=== PATIENT | female | born 1950 | race Caucasian/White ===

== ENCOUNTER → 2019-01-01 11:53 | Outpatient (CLI) | payer MEDICARE, OTHER, SELFPAY ==
[2019-01-01 12:46] LABS: Hematocrit 41.3 % (36-46); Hemoglobin 14.1 g/dL (12.0-16.0); Mean Corpuscular HGB Conc 34.2 % (30-36); Mean Corpuscular Volume 87.8 fL (80-100); Platelet Count 202 X10^3/uL (150-400); Red Cell Distribution Width 14.1 % (11.6-14.8); White Blood Cell Count 5.3 X10^3/uL (4.5-11.0)
[2019-01-01 13:12] LABS: Alanine Aminotransferase 24 IU/L (9-52); Albumin 4.4 g/dL (3.5-5.0); Albumin Globulin Ratio 1.2 (1.0-2.8); Alkaline Phosphatase 76 U/L (38-126); Aspartate Aminotransferase 31 IU/L (14-36); BUN Creatinine Ratio 13.8 (6-22); Bilirubin Total 0.7 mg/dL (0.2-1.3); Blood Urea Nitrogen 11 mg/dL (7-17); Calcium 9.4 mg/dL (8.4-10.2); Carbon Dioxide 29 mmol/L (22-32); Chloride 104 mmol/L (98-107); Cholesterol 237 mg/dL (140-199); Estimated Glomerular Filt Rate > 60.0 mL/min (>60); Globulin 3.7 g/dL (1.7-4.1); Glucose 98 mg/dL (80-110); HDL Cholesterol 61 mg/dL (40-60); HEMOLYSIS < 15 (0-50); LDL Cholesterol Calculated 154 mg/dL (<100); Potassium 4.5 mmol/L (3.4-5.1); Sodium 142 mmol/L (137-145); Total Protein 8.1 g/dL (6.3-8.2); Triglycerides 112 mg/dL (35-150)
[2019-01-01 13:41] LABS: Neutrophils Absolute Manual 3869 /uL (3000-5900); RBC Morphology Normal Morphology; Total Cells Counted 100
[2019-01-01 13:42] LABS: TSH w/ Reflex to FT4 1.43 uIU/mL (0.47-4.68)
[2019-01-01 15:54] LABS: Vitamin D 25 Hydroxy (D3) 18.2 ng/mL (30.0-100.0)
[2019-01-01 16:43] LABS: Creatinine Urine Random 247.7 mg/dL
[2019-01-01 16:48] LABS: Microalbumi Creatinin Ratio Ur 5.2 ug/mg CR (<30); Microalbumin Urine Random 1.3 mg/dL (0-1.6)
== END ==
PROVIDERS: PCP Nurse Practitioner; Visit Provider Nurse Practitioner
DX: E78.5 Hyperlipidemia, unspecified (principal); I10 Essential (primary) hypertension; E55.9 Vitamin D deficiency, unspecified
CPT/HCPCS: 36415; 80053; 80061; 82043; 82306; 82570; 84443; 85025

== ENCOUNTER → 2019-03-25 10:24 | Outpatient (CLI) | payer MEDICARE, OTHER, SELFPAY ==
--- NOTE | 2019-03-26 16:06 | PM.PFT.1 ---
Pulmonary Function Test Referral & Results Date Patient Seen: 03/25/19 Requesting provider: Sam Jung Indication: Asthma Results: The spirometry demonstrates an FVC of 3.21 L which is 93% of predicted. The FEV1 was measured at 2.34 L which is 88% of predicted. The FEV1/FVC ratio was 73 which is 95% of predicted. Following the administration of bronchodilator there was a 20% improvement in FEF 25-75%. Lung volumes show an SVC of 3.03 L which is 94% of predicted. The diffusing capacity was measured at 26.98 which is 95% of predicted. The maximum voluntary ventilation was reduced Interpretation: This study demonstrates mild obstructive lung disease both based on FEV1 and shape a flow volume loop. There is minimal evidence of benefit following bronchodilator primarily small airway flow based on improvement in FEF 25-75% Normal lung volumes and diffusing capacity are present
== END ==
PROVIDERS: PCP Student in an Organized Health Care Education/Training Program; Visit Provider Student in an Organized Health Care Education/Training Program
DX: J45.909 Unspecified asthma, uncomplicated (principal); R06.02 Shortness of breath
CPT/HCPCS: 94060; 94726; 94729

== ENCOUNTER → 2019-04-22 07:34 | Outpatient (CLI) | payer MEDICARE, OTHER, SELFPAY ==
--- NOTE | 2019-04-22 09:00 | DI.ECHO.S_ITS ---
Echocardiogram Report + + :Name: SUZIE MIDDLETON Study Date: 04/22/2019 Height: 67 in : :[facility] Weight: 250 lb : : Gender: Female BSA: 2.2 m2 : :: 1950 Age: 68 yrs BP: 174/88 mmHg: :Reason For Study: Hypertension : : Performed By: [facility] Staff : + + Interpretation Summary Normal sinus rhythm. Normal LV size; borderline concentric LVH; normal wall motion and LV systolic function. EF is 60-65%. No significant valvular abnormalities. Normal chamber sizes. No prior study available for comparison. Procedure: A two-dimensional transthoracic echocardiogram with color flow and Doppler was performed. The study quality was technically adequate. There is no prior echocardiogram noted for this patient. The patient was in normal sinus rhythm during the exam. Left Ventricle: The left ventricle is normal in size. There is borderline concentric left ventricular hypertrophy. Left ventricular systolic function is normal. The ejection fraction is estimated to be 60-65%. Left ventricular wall motion is normal. Right Ventricle: The right ventricle is normal in size and function. Atria: The left atrial size is normal. The right atrium is mildly dilated. The interatrial septum is intact with no evidence for an atrial septal defect. Mitral Valve: The mitral valve is normal in structure and function. There is no mitral regurgitation noted. Aortic Valve: The aortic valve is trileaflet. The aortic valve opens well. No aortic regurgitation is present. Tricuspid Valve: The tricuspid valve is normal in structure and function. There is trace tricuspid regurgitation. Pulmonary artery pressures cannot be estimated because of the lack of a measurable TR jet velocity. Pulmonic Valve: The pulmonic valve is not well visualized. There is trace pulmonic regurgitation. Great Vessels: The aortic root is normal size. The dimensions of the ascending aorta are normal. The pulmonary artery is normal size. The inferior vena cava was not visualized. Pericardium/ Pleura There is no pericardial effusion. There is no pleural effusion. MMode/2D Measurements & Calculations LVIDd: 4.4 cm LVOT diam: 2.0 cm LVIDs: 2.4 cm Ao root diam: 3.0 cm FS: 45.6 % Aortic Jxn: 2.9 cm EPSS: 0.32 cm IVSd: 1.1 cm LVPWd: 1.1 cm LV munoz. diameter/BSA (cm/m^2): 2.0 LV sys. diameter/BSA (cm/m^2): 1.1 LA A2 area: 18.0 cm2 RA long axis: 4.5 cm LA A4 area: 23.6 cm2 RA area: 19.9 cm2 LA length (vol): 5.5 cm RA vol: 74.4 ml LA vol: 65.5 ml RA : 33.5 ml/m2 LA vol index: 29.4 ml/m2 TAPSE: 2.5 cm Doppler Measurements & Calculations Ao V2 max: 131.2 cm/sec LVOT Max Jad: 139.3 cm/sec Ao V2 mean: 100.6 cm/sec LV V1 max P.8 mmHg Ao max P.9 mmHg LV V1 VTI: 35.0 cm Ao mean P.4 mmHg CLARISA(I,D): 3.3 cm2 Ao V2 VTI: 31.8 cm CLARISA(V,D): 3.2 cm2 sev ratio: 1.1 CLARISA indexed to BSA (cm^2/m^2): 1.5 MV E max jad: 101.5 cm/sec PA V2 max: 98.4 cm/sec MV A max jad: 128.5 cm/sec PA V2 mean: 74.5 cm/sec MV E/A: 0.79 PA mean P.5 mmHg Med Peak E' Jad: 8.3 cm/sec PA Accel Time: 0.13 sec E/E' med: 12.3 Lat Peak E' Jad: 7.9 cm/sec E/E' lat: 12.9 E/e' average: 12.6 MV dec time: 0.27 sec SV(LVOT): 105.2 ml _ Electronically signed by: Annita Ballesteros M.D. on Reading Physician:04/23/2019 12:21 AM
== END ==
PROVIDERS: PCP Student in an Organized Health Care Education/Training Program; Visit Provider Student in an Organized Health Care Education/Training Program
DX: I10 Essential (primary) hypertension (principal); R05 Cough
CPT/HCPCS: 93306

== ENCOUNTER → 2019-08-11 09:15 | Outpatient (CLI) | payer MEDICARE, OTHER, SELFPAY ==
[2019-08-11 10:58] LABS: Vitamin D 25 Hydroxy (D3) 21.4 ng/mL (30.0-100.0)
== END ==
PROVIDERS: PCP Student in an Organized Health Care Education/Training Program; Referring Provider Nurse Practitioner; Visit Provider Nurse Practitioner
DX: E55.9 Vitamin D deficiency, unspecified (principal); E78.5 Hyperlipidemia, unspecified
CPT/HCPCS: 36415; 82306

== ENCOUNTER 2019-08-26 14:30 | Outpatient (RCR) | payer MEDICARE, OTHER, SELFPAY ==
--- NOTE | 2019-08-20 16:00 | PT.OPPOC ---
Physical, Occupational & Speech Therapy At [facility] Current Diagnoses Pain in left knee (08/20/19) Lumbago with sciatica, right side (08/20/19) Lumbago with sciatica, left side (08/20/19) Visit Care Team Role Provider Type Sam Jung MD Attending Provider Physician Primary Care Provider Referring Provider Specialty: Internal Medicine Address: [address] [place] [address], [facility] [address], [address] Email: [email or web address] Plan Of Care PT-OP-T Assessment and Plan Start: 08/20/19 07:28 Freq: Status: Active Protocol: Document 08/20/19 10:33 EG (Rec: 08/20/19 17:10 EG [email or web address]) Physical Therapy Assessment Rehab Potential Rehabilitation Potential Good Evaluation Complexity Number of Personal Factors/Comorbidities 3 or More Number of Body Systems Impaired 4 or More Clinical Presentation at Evaluation Stable Impairments Impairments Activity Tolerance,Balance, Functional Activities, Functional Mobility,Gait,Pain, Posture,ROM,Soft Tissue Mobility,Strength Goals Strength Impairment Strength Short Term Goal (STG) Patient will increase hip extension and abduction strength to 4+/5 bilaterally with no increase in symptoms in 6 weeks. STG Duration 6 weeks Transformer Mechanic Goal (LTG) Patient will increase ability to walk longer distances (>1 mile) with no increase in L hip and knee pain due to increased strength in bilateral hips. LTG Duration 8 weeks ROM Impairment ROM Short Term Goal (STG) Patient will have a 50% increase in ROM and be able to perform 10x spinal flexion with no increase in radiating pain in 4 weeks. STG Duration 4 weeks Transformer Mechanic Goal (LTG) Patient will be able to perform full range spinal flexion and bean picker objects from the floor with no increase in pain in 8 weeks. LTG Duration 8 weeks Activity Tolerance Impairment Activity Tolerance Short Term Goal (STG) Patient will be able to sit for >30 minutes with out pillow with no increase in hip and thigh pain in 3 weeks. STG Duration 3 weeks Half-Way Goal (LTG) Patient will be able to sit while driving with no need to weight shift and without a pillow under hip with no increase in pain in 6 weeks. LTG Duration 6 weeks Assessment Summary Assessment Patient is an otherwise healthy 69 year old female who reports to Physical Therapy due to low back pain with radiating pain down the L hip and thigh that stops superior to knee. The patient does present with back pain she does not believe to be related to her thigh but after testing, it seems as if repeated flexion increased radiating pain in to buttocks. There was no pain with PA mobilization of lumber spine and active extension does not eliminate radiating symptoms. Patient does have weak stabilizing muscles in the hips and will benefit from strengthening to help with stabilization when walking and performing dynamic movements at home. Patient does have tight gluteal and piriformis musculature with consideration that this may be contributing to the intermittent pain. Patient will benefit from skilled therapy to address spinal ROM, hip musculature strengthening as well as soft tissue lengthening of the posterior hip muscles. She will also benefit from balance , core, and stabilization exercises to help with safety and stability in ADL's. Physical Therapy Plan Frequency and Duration Frequency of Treatment 2x/Week Duration of Treatment 8 weeks Plan of Care Start Date 08/20/19 Plan of Care End Date 10/15/19 Therapeutic Interventions Therapeutic Interventions Balance Training,Coordination Training,Gait Training,Home Exercise Program,Joint Mobilizations,Manual Therapy, Neuromuscular Re-education, Patient/Caregiver Education, Self-Care/Home Management,Soft Tissue Mobilization,Taping, Therapeutic Activities, Therapeutic Exercises Modalities Cold Pack/Ice Massage,Electric Stimulation,Hot Packs Next Visit Focus/Plan Next Note Type Treatment Note Next Visit Plan Initiate therapeutic exercises focused on stretches she can do at home that address lower back as well as posterior lateral hip. Give clams, TA PPT, bridges, hamstring stretch, piriformis stretch, and possibly press-ups. Begin soft tissue mobilization Plan of Care Dates Plan of Care Start Date 08/20/19 Plan of Care End Date 10/15/19 Evelyn Constantino DPT supervised and agreed with the plan of care as performed by Katy Butler, BENOIT. Electronically Signed by: Jaycee Light, PT 08/24/19 1011 Please Sign and Return: I have reviewed this Plan of Care and certify that the skilled therapy services above are required to meet the patient?s needs. Physician Signature Date Printed Name and Credentials Clinical Instructor Signature Printed Name and Credentials
--- NOTE | 2019-08-20 16:00 | PT.OPPOC ---
Physical, Occupational & Speech Therapy At [facility] Current Diagnoses Pain in left knee (08/20/19) Lumbago with sciatica, right side (08/20/19) Lumbago with sciatica, left side (08/20/19) Visit Care Team Role Provider Type Sam Jung MD Attending Provider Physician Primary Care Provider Referring Provider Specialty: Internal Medicine Address: [address] [place] [address], [facility] [address], [place], [address] Email: [email or web address] Plan Of Care PT-OP-T Assessment and Plan Start: 08/20/19 07:28 Freq: Status: Active Protocol: Document 08/20/19 10:33 EG (Rec: 08/20/19 17:10 EG [email or web address]) Physical Therapy Assessment Rehab Potential Rehabilitation Potential Good Evaluation Complexity Number of Personal Factors/Comorbidities 3 or More Number of Body Systems Impaired 4 or More Clinical Presentation at Evaluation Stable Impairments Impairments Activity Tolerance,Balance, Functional Activities, Functional Mobility,Gait,Pain, Posture,ROM,Soft Tissue Mobility,Strength Goals Strength Impairment Strength Short Term Goal (STG) Patient will increase hip extension and abduction strength to 4+/5 bilaterally with no increase in symptoms in 6 weeks. STG Duration 6 weeks Br[employer] Tube Bender Goal (LTG) Patient will increase ability to walk longer distances (>1 mile) with no increase in L hip and knee pain due to increased strength in bilateral hips. LTG Duration 8 weeks ROM Impairment ROM Short Term Goal (STG) Patient will have a 50% increase in ROM and be able to perform 10x spinal flexion with no increase in radiating pain in 4 weeks. STG Duration 4 weeks [employer] Tube Bender Goal (LTG) Patient will be able to perform full range spinal flexion and pickling machine operator objects from the floor with no increase in pain in 8 weeks. LTG Duration 8 weeks Activity Tolerance Impairment Activity Tolerance Short Term Goal (STG) Patient will be able to sit for >30 minutes with out pillow with no increase in hip and thigh pain in 3 weeks. STG Duration 3 weeks Prison Goal (LTG) Patient will be able to sit while driving with no need to weight shift and without a pillow under hip with no increase in pain in 6 weeks. LTG Duration 6 weeks Assessment Summary Assessment Patient is an otherwise healthy 69 year old female who reports to Physical Therapy due to low back pain with radiating pain down the L hip and thigh that stops superior to knee. The patient does present with back pain she does not believe to be related to her thigh but after testing, it seems as if repeated flexion increased radiating pain in to buttocks. There was no pain with PA mobilization of lumber spine and active extension does not eliminate radiating symptoms. Patient does have weak stabilizing muscles in the hips and will benefit from strengthening to help with stabilization when walking and performing dynamic movements at home. Patient does have tight gluteal and piriformis musculature with consideration that this may be contributing to the intermittent pain. Patient will benefit from skilled therapy to address spinal ROM, hip musculature strengthening as well as soft tissue lengthening of the posterior hip muscles. She will also benefit from balance , core, and stabilization exercises to help with safety and stability in ADL's. Physical Therapy Plan Frequency and Duration Frequency of Treatment 2x/Week Duration of Treatment 8 weeks Plan of Care Start Date 08/20/19 Plan of Care End Date 10/15/19 Therapeutic Interventions Therapeutic Interventions Balance Training,Coordination Training,Gait Training,Home Exercise Program,Joint Mobilizations,Manual Therapy, Neuromuscular Re-education, Patient/Caregiver Education, Self-Care/Home Management,Soft Tissue Mobilization,Taping, Therapeutic Activities, Therapeutic Exercises Modalities Cold Pack/Ice Massage,Electric Stimulation,Hot Packs Next Visit Focus/Plan Next Note Type Treatment Note Next Visit Plan Initiate therapeutic exercises focused on stretches she can do at home that address lower back as well as posterior lateral hip. Give clams, TA PPT, bridges, hamstring stretch, piriformis stretch, and possibly press-ups. Begin soft tissue mobilization Plan of Care Dates Plan of Care Start Date 08/20/19 Plan of Care End Date 10/15/19 IJaycee DPT, supervised and agreed with the plan of care as performed by Katy Butler, BENOIT. Electronically Signed by: Jaycee Light, PT 08/24/19 1012 Please Sign and Return: I have reviewed this Plan of Care and certify that the skilled therapy services above are required to meet the patient?s needs. Physician Signature Date Printed Name and Credentials Clinical Instructor Signature Printed Name and Credentials
--- NOTE | 2019-08-20 16:00 | PT.OIE ---
Current Diagnoses Pain in left knee (08/20/19) Lumbago with sciatica, right side (08/20/19) Lumbago with sciatica, left side (08/20/19) Past Medical History (Last Updated 02/15/19 @ 13:35 by Sam Jung MD) Allergic rhinitis (Chronic) Atopic dermatitis (Chronic) Chickenpox (Resolved) Fibroids (Resolved Unknown) Fractures (Resolved Unknown) Generalized headaches (Chronic Unknown) GERD (gastroesophageal reflux disease) (Chronic) Measles (Resolved) Mumps (Resolved) Plantar fasciitis (Resolved Unknown) Posterior vitreous detachment (Chronic) Past Surgical History (Last Reviewed 12/15/17 @ 23:26 by Bradley Reyes MD) S/P myomectomy (Chronic) S/P tonsillectomy (Chronic) Visit Care Team Role Provider Type Sam Jung MD Attending Provider Physician Primary Care Provider Referring Provider Specialty: Internal Medicine Address: [address] [place] [address], [facility] Email: [email or web address] Physical Therapy Initial Evaluation PT-OP-A Visit Information Start: 08/20/19 07:28 Freq: Status: Active Protocol: Document 08/20/19 10:33 EG (Rec: 08/20/19 16:26 EG [email or web address]) Out-Patient Physical Therapy Visit Information Visit Information Visit Type Initial Evaluation Visit Start Time 10:33 Visit Stop Time 11:20 Total Visit Minutes 47 Visit Number 1 Number of SENIOR MARKET INTELLIGENCE CONSULTANT Visits 0 Evaluation Information Evaluation Date 08/20/19 PT-OP-B Current Condition Start: 08/20/19 07:28 Freq: Status: Active Protocol: Document 08/20/19 10:33 EG (Rec: 08/20/19 11:27 EG [id number]) Current Condition History of Current Condition Onset Date 2 months ago Current Complaints Pain in L buttock that travels to L posterior thigh History of Current Condition Patient reported that she does get a little back pain in morning which she works out with stretches but that is not why she is here. She is coming to PT because 2 months ago, she noticed that along with her back pain she had pain that was going down in to her L buttock and posterior upper thigh. She says that sometimes, the pain is just in the buttock and sometimes the pain is in both the thigh and the buttock. She reports the pain as being intermittent and activity dependent. She has never done Physical Therapy and would like to learn what some stretches she can do would be to manage the condition. She is currently taking Gabapentin 3x/day with some relief but she does have fatigue while taking this medication. Variable activities will bring on her pain such as lifting things and bending over. She also gets pain when sitting for a period of time that is relieved with putting a pillow under her L side. She doesn't think back pain is anything big but doesn't know if this is related. When she went to her MD, he told her she has Piriformis Syndrome but that he couldn't rule out the disk pinching the nerve. She has started to do a stretch that she found on the internet for the piriformis. She says that sometimes the degree of pain is quite high in her leg that she cannot even say Ow. The other day, she tripped and fell in to which sparked up the pain and it hasn't quite gone away. She also reports having Bad knees, L knee is worse as well as plantar fasciits - R is worse. Prior Treatments and Tests No other PT Gabapentin for pain relief Future Testing and Treatments Planned Possible knee surgery Treatment Goals Patient/Caregiver Goals She would like want exercise for plantar fasciitis as well as knee strengthening exercises Would like to alleviate symptoms in her hip and thigh Prior Functional Status Baseline Function- ADL's Independent Baseline Function- Mobility Independent Baseline Function- Gait Could not walk long due to knee pain Baseline Function- Work/School Retired Current Functional Impairments (Reported) Functional Limitations- ADL's Does not bother her when sleeping Functional Limitations- Mobility/Gait Pain when bending over and lifting things up Pain with sitting >2 minutes at times Personal Factors Other Personal Factors That May Effect Headaches Therapy/Recovery High BP Cough Variant Asthma PT-OP-C Subjective Start: 08/20/19 07:28 Freq: Status: Active Protocol: Document 08/20/19 10:33 EG (Rec: 08/20/19 17:10 EG [email or web address]) Patient Questionnaires Oswestry Low Back Index Oswestry Score 40 Oswestry Impairment 40 to 59% Impaired (Score 40- 59) OP-PT Pain Assessment Pain Assessment Grid Paper Pain Assessment Grid Completed Yes: 4 in L hip/posterior leg, 3 R knee and R foot, 4 L knee and L foot PT-OP-K Range of Motion Start: 08/20/19 07:28 Freq: Status: Active Protocol: Document 08/20/19 10:33 EG (Rec: 08/20/19 17:10 EG [email or web address]) Lumbar Spine Range of Motion Lumbar Spine Active Percentage Testing Position Standing Flexion 60 Extension 80 Rotation Left 80 Rotation Right 80 Lateral Flexion Left 80 Lateral Flexion Right 75 Comments Repeated active flexion increased pain in L hip and thigh. R lateral flexion increased ache in R side PT-OP-L Special Tests Start: 08/20/19 07:28 Freq: Status: Active Protocol: Document 08/20/19 10:33 EG (Rec: 08/20/19 17:10 EG [email or web address]) Special Tests Lumbar Spine Special Tests Lumbar PA Test Results - Comments done L2-S1 - no change in radiating pain Standing Flexion Test Results + Comments Repeated standing flexion increased radiating pain Prone Press Up Test Results - Comments no pain with press up Straight Leg Raise Test Results + Comments L side Hip Special Tests Scour Test Test Results - Trendelenberg Test Results + Comments Slight trendelenburg bilateral sides Piriformis Test Results - Comments No increase in pain when placed in piriformis stretch. Increase in L knee pain PT-OP-M Strength Start: 08/20/19 07:28 Freq: Status: Active Protocol: Document 08/20/19 10:33 EG (Rec: 08/20/19 17:10 EG [email or web address]) Hip Strength Hip Manual Muscle Testing Left Flexion (L2) 3+ Fair+ Extension (S1) 3 Fair Abduction 3+ Fair+ Comments L hip extension increased pain in L hip and thigh Knee Strength Knee Manual Muscle Testing R Flexion (S2) 4 Good Extension (L3) 4 Good L Flexion (S2) 4- Good- Extension (L3) 4 Good Comments L flexion increased pain in L hip and thigh Ankle/Foot Strength Ankle and Foot Manual Muscle Testing Right Dorsiflexion (L4) 4 Good Left Dorsiflexion (L4) 4 Good Comments DF increased pain in L knee PT-OP-T Assessment and Plan Start: 08/20/19 07:28 Freq: Status: Active Protocol: Document 08/20/19 10:33 EG (Rec: 08/20/19 17:10 EG [email or web address]) Physical Therapy Assessment Rehab Potential Rehabilitation Potential Good Evaluation Complexity Number of Personal Factors/Comorbidities 3 or More Number of Body Systems Impaired 4 or More Clinical Presentation at Evaluation Stable Impairments Impairments Activity Tolerance,Balance, Functional Activities, Functional Mobility,Gait,Pain, Posture,ROM,Soft Tissue Mobility,Strength Goals Strength Impairment Strength Short Term Goal (STG) Patient will increase hip extension and abduction strength to 4+/5 bilaterally with no increase in symptoms in 6 weeks. STG Duration 6 weeks Care Home Goal (LTG) Patient will increase ability to walk longer distances (>1 mile) with no increase in L hip and knee pain due to increased strength in bilateral hips. LTG Duration 8 weeks ROM Impairment ROM Short Term Goal (STG) Patient will have a 50% increase in ROM and be able to perform 10x spinal flexion with no increase in radiating pain in 4 weeks. STG Duration 4 weeks Development Professional Goal (LTG) Patient will be able to perform full range spinal flexion and corn picker objects from the floor with no increase in pain in 8 weeks. LTG Duration 8 weeks Activity Tolerance Impairment Activity Tolerance Short Term Goal (STG) Patient will be able to sit for >30 minutes with out pillow with no increase in hip and thigh pain in 3 weeks. STG Duration 3 weeks Care Home Goal (LTG) Patient will be able to sit while driving with no need to weight shift and without a pillow under hip with no increase in pain in 6 weeks. LTG Duration 6 weeks Assessment Summary Assessment Patient is an otherwise healthy 69 year old female who reports to Physical Therapy due to low back pain with radiating pain down the L hip and thigh that stops superior to knee. The patient does present with back pain she does not believe to be related to her thigh but after testing, it seems as if repeated flexion increased radiating pain in to buttocks. There was no pain with PA mobilization of lumber spine and active extension does not eliminate radiating symptoms. Patient does have weak stabilizing muscles in the hips and will benefit from strengthening to help with stabilization when walking and performing dynamic movements at home. Patient does have tight gluteal and piriformis musculature with consideration that this may be contributing to the intermittent pain. Patient will benefit from skilled therapy to address spinal ROM, hip musculature strengthening as well as soft tissue lengthening of the posterior hip muscles. She will also benefit from balance , core, and stabilization exercises to help with safety and stability in ADL's. Physical Therapy Plan Frequency and Duration Frequency of Treatment 2x/Week Duration of Treatment 8 weeks Plan of Care Start Date 08/20/19 Plan of Care End Date 10/15/19 Therapeutic Interventions Therapeutic Interventions Balance Training,Coordination Training,Gait Training,Home Exercise Program,Joint Mobilizations,Manual Therapy, Neuromuscular Re-education, Patient/Caregiver Education, Self-Care/Home Management,Soft Tissue Mobilization,Taping, Therapeutic Activities, Therapeutic Exercises Modalities Cold Pack/Ice Massage,Electric Stimulation,Hot Packs Next Visit Focus/Plan Next Note Type Treatment Note Next Visit Plan Initiate therapeutic exercises focused on stretches she can do at home that address lower back as well as posterior lateral hip. Give clams, TA PPT, bridges, hamstring stretch, piriformis stretch, and possibly press-ups. Begin soft tissue mobilization I, Jaycee Light DPT, supervised and agreed with the plan of care as performed by Katy Butler, SPT.
--- NOTE | 2020-01-13 07:16 | PT.OPDS ---
Current Diagnoses Pain in left knee (08/26/19) Lumbago with sciatica, right side (08/26/19) Lumbago with sciatica, left side (08/26/19) Visit Care Team Role Provider Type Sam Jung MD Attending Provider Physician Primary Care Provider Referring Provider Specialty: Internal Medicine Address: [address] [place] [address], [address], [address] Email: [email or web address] Visit Number Visit Number 2 Discharge Summary PT-OP-B Current Condition Start: 08/20/19 07:28 Freq: Status: Active Protocol: Document 08/20/19 10:33 EG (Rec: 08/20/19 11:27 EG [id number]) Current Condition History of Current Condition Onset Date 2 months ago Current Complaints Pain in L buttock that travels to L posterior thigh History of Current Condition Patient reported that she does get a little back pain in morning which she works out with stretches but that is not why she is here. She is coming to PT because 2 months ago, she noticed that along with her back pain she had pain that was going down in to her L buttock and posterior upper thigh. She says that sometimes, the pain is just in the buttock and sometimes the pain is in both the thigh and the buttock. She reports the pain as being intermittent and activity dependent. She has never done Physical Therapy and would like to learn what some stretches she can do would be to manage the condition. She is currently taking Gabapentin 3x/day with some relief but she does have fatigue while taking this medication. Variable activities will bring on her pain such as lifting things and bending over. She also gets pain when sitting for a period of time that is relieved with putting a pillow under her L side. She doesn't think back pain is anything big but doesn't know if this is related. When she went to her MD, he told her she has Piriformis Syndrome but that he couldn't rule out the disk pinching the nerve. She has started to do a stretch that she found on the internet for the piriformis. She says that sometimes the degree of pain is quite high in her leg that she cannot even say Ow. The other day, she tripped and fell in to which sparked up the pain and it hasn't quite gone away. She also reports having Bad knees, L knee is worse as well as plantar fasciits - R is worse. Prior Treatments and Tests No other PT Gabapentin for pain relief Future Testing and Treatments Planned Possible knee surgery Treatment Goals Patient/Caregiver Goals She would like want exercise for plantar fasciitis as well as knee strengthening exercises Would like to alleviate symptoms in her hip and thigh Prior Functional Status Baseline Function- ADL's Independent Baseline Function- Mobility Independent Baseline Function- Gait Could not walk long due to knee pain Baseline Function- Work/School Retired Current Functional Impairments (Reported) Functional Limitations- ADL's Does not bother her when sleeping Functional Limitations- Mobility/Gait Pain when bending over and lifting things up Pain with sitting >2 minutes at times Personal Factors Other Personal Factors That May Effect Headaches Therapy/Recovery High BP Cough Variant Asthma PT-OP-C Subjective Start: 08/20/19 07:28 Freq: Status: Active Protocol: Document 08/26/19 14:30 EG (Rec: 08/26/19 16:32 EG [id number]) OP-PT Subjective Patient Comments Patient Comments Patient reports that she was very sore after the evaluation . She is worried about her because they have declared him a high-risk individual for tk Coronavirus so she is worried about coming back to the hospital. She is hoping she will be able to come to the following appointments but is not sure at this point. She wants to learn as many exercises and the progressions as she can today for her back and her knee today so she can do them at home Patient Reported Progress Same PT-OP-K Range of Motion Start: 08/20/19 07:28 Freq: Status: Active Protocol: Document 08/20/19 10:33 EG (Rec: 08/20/19 17:10 EG [email or web address]) Lumbar Spine Range of Motion Lumbar Spine Active Percentage Testing Position Standing Flexion 60 Extension 80 Rotation Left 80 Rotation Right 80 Lateral Flexion Left 80 Lateral Flexion Right 75 Comments Repeated active flexion increased pain in L hip and thigh. R lateral flexion increased ache in R side PT-OP-L Special Tests Start: 08/20/19 07:28 Freq: Status: Active Protocol: Document 08/20/19 10:33 EG (Rec: 08/20/19 17:10 EG [email or web address]) Special Tests Lumbar Spine Special Tests Lumbar PA Test Results - Comments done L2-S1 - no change in radiating pain Standing Flexion Test Results + Comments Repeated standing flexion increased radiating pain Prone Press Up Test Results - Comments no pain with press up Straight Leg Raise Test Results + Comments L side Hip Special Tests Scour Test Test Results - Trendelenberg Test Results + Comments Slight trendelenburg bilateral sides Piriformis Test Results - Comments No increase in pain when placed in piriformis stretch. Increase in L knee pain PT-OP-M Strength Start: 08/20/19 07:28 Freq: Status: Active Protocol: Document 08/20/19 10:33 EG (Rec: 08/20/19 17:10 EG [email or web address]) Hip Strength Hip Manual Muscle Testing Left Flexion (L2) 3+ Fair+ Extension (S1) 3 Fair Abduction 3+ Fair+ Comments L hip extension increased pain in L hip and thigh Knee Strength Knee Manual Muscle Testing R Flexion (S2) 4 Good Extension (L3) 4 Good L Flexion (S2) 4- Good- Extension (L3) 4 Good Comments L flexion increased pain in L hip and thigh Ankle/Foot Strength Ankle and Foot Manual Muscle Testing Right Dorsiflexion (L4) 4 Good Left Dorsiflexion (L4) 4 Good Comments DF increased pain in L knee PT-OP-T Assessment and Plan Start: 08/20/19 07:28 Freq: Status: Active Protocol: Document 01/13/20 07:15 MB (Rec: 01/13/20 07:16 MB [id number]) Physical Therapy Plan Discharge Physical Therapy Discharge Reasons No Longer Attending PT Discharge Comments Pt has not been seen since before COVID closure. Clinic has left message to inquire about con't PT and pt has not returned call. Will d/c PT.
== END 2020-01-13 13:22 ==
LOC: PHYS 14:30
PROVIDERS: PCP Student in an Organized Health Care Education/Training Program; Referring Provider Student in an Organized Health Care Education/Training Program; Visit Provider Student in an Organized Health Care Education/Training Program
DX: M54.41 Lumbago with sciatica, right side (principal); M54.42 Lumbago with sciatica, left side; M25.562 Pain in left knee
CPT/HCPCS: 97110; 97161; 97535

== ENCOUNTER → 2020-03-08 08:39 | Outpatient (CLI) | payer MEDICARE, OTHER, SELFPAY ==
[2020-03-09 08:57] LABS: COVID19 Sendout Not Detected (Not Detect)
== END ==
PROVIDERS: PCP Student in an Organized Health Care Education/Training Program; Visit Provider Physician Assistant
DX: Z11.59 Encounter for screening for other viral diseases (principal)
CPT/HCPCS: 87635

== ENCOUNTER → 2022-06-14 14:04 | Outpatient (CLI) | payer MEDICARE, OTHER, SELFPAY ==
--- NOTE | 2022-06-14 | DI.RAD.S_ITS ---
PROCEDURE: XR WRIST RT MIN 3V INDICATIONS: pain, synovitis and tenosynovitis, right hand TECHNIQUE: 4 views of the wrist were acquired. COMPARISON: None. FINDINGS: Bones: No fractures or dislocations. No suspicious bony lesions. First carpometacarpal joint space narrowing and subchondral sclerosis. Generalized decrease in osseous mineralization noted. Soft tissues: No suspicious soft tissue calcifications. IMPRESSION: First carpometacarpal osteoarthritis Approved by: Abhay Kovacs M.D. on 06/14/2022 at 16:03
== END ==
PROVIDERS: PCP Registered Nurse; Referring Provider Registered Nurse; Visit Provider Registered Nurse
DX: M18.11 Unilateral primary osteoarthritis of first carpometacarpal joint, right hand (principal); M25.531 Pain in right wrist; M65.841 Other synovitis and tenosynovitis, right hand
CPT/HCPCS: 73110